=== PATIENT | male | born 1980 | race Two or more races ===

== ENCOUNTER 2023-07-24 19:46 | Emergency (ER) | payer MEDICAID, OTHER ==
[~2023-07-24] VITALS: Ht 170.2 cm; Wt 68.0 kg
[2023-07-24 20:22] VITALS: TEMP 98.5
[2023-07-24 20:29] VITALS: BP 148/91; O2SAT 100
[2023-07-24] MEDS ORDERED: IBUPROFEN 600 MG TABLET ONE (20:41)
[2023-07-24] MEDS ORDERED: TDAP [DIPH/PERTUSSIS/TET] 0.5 ML VIAL IM ONE (20:42)
[2023-07-24] MEDS ORDERED: ACETAMINOPHEN 325 MG TABLET ONE (20:42)
[2023-07-24] MEDS: IBUPROFEN 600 MG TABLET PO ONE (20:45)
[2023-07-24] MEDS: ACETAMINOPHEN 325 MG TABLET PO ONE (20:45)
[2023-07-24] MEDS: TDAP [DIPH/PERTUSSIS/TET] 0.5 ML VIAL IM ONE (20:49)
[2023-07-24] MEDS: CEFAZOLIN 1 GM VIAL IM ONE (21:17)
[2023-07-24] MEDS ORDERED: CLINDAMYCIN 900 MG/6 ML VIAL ONE (21:20)
[2023-07-24] MEDS: CLINDAMYCIN 900 MG/6 ML VIAL IM ONE (21:30)
[2023-07-24] MEDS ORDERED: IBUP-1955 PO (22:13)
[2023-07-24] MEDS ORDERED: ACET325C7 PO (22:13)
== END 2023-07-24 22:40 | disposition home or self-care (01) ==
LOC: ER 19:55
DX: S62.602A Fracture of unspecified phalanx of right middle finger, initial encounter for closed fracture (principal); S62.604A Fracture of unspecified phalanx of right ring finger, initial encounter for closed fracture; S62.606A Fracture of unspecified phalanx of right little finger, initial encounter for closed fracture; S61.214A Laceration without foreign body of right ring finger without damage to nail, initial encounter; Z60.2 Problems related to living alone; X58.XXXA Exposure to other specified factors, initial encounter; Y93.89 Activity, other specified; Y92.89 Other specified places as the place of occurrence of the external cause; Y99.8 Other external cause status
CPT/HCPCS: 29130; 73130; 90471; 90715; 96372; 99284; J0690; J3490